=== PATIENT | female | born 1975 | race Caucasian/White ===

== ENCOUNTER → 2016-12-30 | Outpatient (CLI) | payer OTHER ==
[~2016-12-30] MED LIST: NO HOME MEDICATIONS; NORCO 325 MG-7.1 TAB PO
== END ==
LOC: MC.RAD 11:00
DX: Z12.31 Encounter for screening mammogram for malignant neoplasm of breast (principal)

== ENCOUNTER 2018-10-11 01:51 | Emergency (ER) | payer OTHER ==
[~2018-10-11] VITALS: Ht 165.1 cm; Wt 65.5 kg
[~2018-10-11 01:51] MED LIST changes: -NORCO 325 MG-51 TAB PO; -ZOFRAN ODT4 MG PO
[2018-10-11 01:58] VITALS: TEMP 97.5
[2018-10-11 02:37] LABS: COLLECTION METHOD CLEAN CATCH
[2018-10-11 02:50] LABS: BASO % 0.4 % (0.0-2.0); EOS # 0.2 (0.0-0.7); EOS % 1.8 % (0-4.0); GRAN # 8.4 (1.4-6.5); GRAN % 75.1 % (42.2-75.2); HEMOGLOBIN 12.9 g/dl (12.5-16.0); LYMPH # 1.8 (1.2-3.4); LYMPH % 16.1 % (20.0-51.0); MEAN CELL VOLUME 88 fl (80.0-100.0); MEAN CORPUSCULAR HEMOGLOBIN 30 pg (27.0-31.0); MEAN CORPUSCULAR HGB CONC 34 g/dl (33.0-37.0); MEAN PLATELET VOLUME 10.7 fl (7.4-10.4); MONO # 0.7 (0.1-0.6); MONO % 6.2 % (1.7-9.3); PLATELET COUNT 278 K/mm3 (130-400); RED BLOOD COUNT 4.33 M/mm3 (4.10-5.30); REDCELL DISTRIBUTION WIDTH-CV 11.9 % (11.5-14.5)
[2018-10-11 02:55] LABS: AMORPHOUS CRYSTAL Present /uL; MUCOUS Present /lpf; PH 6 (5-8); URINE APPEARANCE Clear; URINE BACTERIA None Seen /hpf; URINE BILIRUBIN Negative (NEGATIVE); URINE BLOOD Negative (NEGATIVE); URINE COLOR Yellow; URINE GLUCOSE Negative (NEGATIVE); URINE KETONE Trace (NEGATIVE); URINE LEUKOCYTE ESTERASE Negative (NEGATIVE); URINE NITRATE Negative (NEGATIVE); URINE PROTEIN(semi-quant) Negative (NEGATIVE); URINE RBC 0-2 /hpf; URINE UROBILINOGEN Negative (NEGATIVE)
[2018-10-11 03:06] LABS: ALANINE AMINOTRANSFERASE 26 U/L (9-52); ALKALINE PHOSPHATASE 75 U/L (50-136); ANION GAP 9 mmol/L (7-16); AST,SGOT 22 U/L (15-37); BILIRUBIN,TOTAL 0.3 mg/dL (0.0-1.0); BLOOD UREA NITROGEN 22 mg/dL (7-17); C-REACTIVE PROTEIN < 0.5 mg/dL (0.0-0.9); CALCIUM 9.2 mg/dL (8.4-10.2); CARBON DIOXIDE 23 mmol/L (22-30); CHLORIDE 104 mmol/L (98-107); GLUCOSE 120 mg/dL (74-106); LIPASE 122 U/L (23-300); POTASSIUM 3.7 mmol/L (3.4-5.0); SODIUM 137 mmol/L (137-145); TOTAL PROTEIN 6.8 gm/dL (6.4-8.2)
[2018-10-11] MEDS ORDERED: ZOFRAN ODT4 MG PO (05:04)
[2018-10-11] MEDS ORDERED: NORCO 325 MG-51 TAB PO (05:04)
[2018-10-11 05:20] VITALS: BP 108/70; PULSE 80
== END 2018-10-11 05:20 | disposition home or self-care (01) ==
LOC: COL.ER 01:51
PROVIDERS: Physician Assistant
DX: R10.11 Right upper quadrant pain (principal); R11.0 Nausea
CPT/HCPCS: J1170; J1885; J2405; J7030

== ENCOUNTER → 2018-10-11 | Outpatient (CLI) | payer OTHER ==
[~2018-10-11] MED LIST changes: +NORCO 325 MG-51 TAB PO; +ZOFRAN ODT4 MG PO
== END ==
LOC: COL.RAD 08:57
DX: K80.20 Calculus of gallbladder without cholecystitis without obstruction (principal); K82.8 Other specified diseases of gallbladder

== ENCOUNTER 2018-10-12 13:27 | Day surgery (SDC) | payer OTHER ==
[2018-10-12] VITALS (7 sets, daily range): BP systolic 106–143; BP diastolic 62–98; PULSE 57–88; TEMP 97.8–98.2
[~2018-10-12] VITALS: Ht 165.1 cm; Wt 95.1 kg
[~2018-10-12 13:27] MED LIST changes: +NORCO 325 MG-51 TAB PO; +ZOFRAN ODT4 MG PO
--- NOTE | 2018-10-12 17:00 | NUR ---
PATIENT ARRIVES TO [facility] VIA CART. POST OP VS STARTED. PEPSI AND CHOCOLATE PUDDING GIVEN REQUESTED. AT BEDSIDE. CALL LIGHT WITHIN REACH.
--- NOTE | 2018-10-12 17:37 | NUR ---
PATIENT REMAINS STABLE, ALERT AND ORIENTED. DRINKING WATER. AT BEDSIDE. CALL LIGHT WITHIN REACH.
--- NOTE | 2018-10-12 17:50 | NUR ---
PATIENT AMBULATED TO THE BATHROOM WITHOUT ASSISTANCE.
--- NOTE | 2018-10-12 18:06 | NUR ---
PATIENT ESCORTED TO PERSONAL CAR IN WHEELCHAIR BY THIS NURSE. DISCHARGE INSTRUCTIONS WERE GIVEN AND PATIENT VERBALIZED UNDERSTANDING.
== END 2018-10-12 18:00 | disposition home or self-care (01) ==
LOC: SDCO 13:27
DX: K80.12 Calculus of gallbladder with acute and chronic cholecystitis without obstruction (principal)
CPT/HCPCS: J0690; J1100; J1885; J2405; J2704; J2710; J3010; J7120; Q9967